=== PATIENT | male | born 2000 | race Caucasian/White ===

== ENCOUNTER 2020-10-13 00:11 | Emergency (ER) | payer SELFPAY ==
[2020-10-13 00:12] VITALS: BP 136/71; PULSE 89; RESP 18; TEMP 36.9; O2SAT 100; BMI 22.0
--- NOTE | 2020-10-13 00:14 | ED.VIS.GEN ---
History of Present Illness Chief Complaint: Substance Abuse Informant: Patient Onset: Today Context: Sudden Onset Timing: Continuous Current Severity: Moderate Maximum Severity: Severe Narrative: Patient is a 20-year-old male is otherwise healthy on no daily medications who presents to the emergency department with anxiety. Patient states that he took 2 CBD Gummies tonight. He states shortly after, he began to feel very anxious. He states he felt short of breath and was having tingling in his hands. He states he was able to breathe his way through it. He got concerned and called EMS. On arrival, the patient is awake and alert. He feels like his symptoms are improving. He does not has a history of anxiety. He is not suicidal homicidal. He denies other substance abuse. Prior similar symptoms: No Recent Illness/Hospitalization: No Past Medical History - Allergies and Home Meds Allergies/Adverse Reactions: Allergies No Known Allergies Allergy (Verified 10/13/20 00:17) Primary Care Physician: NOT,DEFINED [Primary Care Provider] - Prior records reviewed: Yes Past Medical History: None Surgical History: no surgical history Review of Systems General: Denies: Chills, Fever, Sweats Eyes: Denies: Visual changes - bilaterally, Diplopia ENT: Denies: Rhinorrhea, Sore throat Cardiovascular: Denies: Chest pain, Palpitations Respiratory: Denies: Dyspnea, Cough, Dyspnea on exertion Gastrointestinal: Denies: Abdominal pain, Nausea, Vomiting, Diarrhea, Melena, Hematochezia Genitourinary: Denies: Dysuria, Hematuria, Frequency Musculoskeletal: Denies: Back pain, Extremity Pain Skin: Denies: Rash, Wounds Neurological: Denies: Headache, Weakness, Numbness Psych: Reports: Anxiety Physical Exam Inital Vital Signs reviewed: Yes General: Well nourished, Well developed, No Acute Distress Head: Normocephalic, Atraumatic Eyes: Perrl, EOMI ENT: Moist mucous membranes, No rhinorrhea Neck: Supple, Nontender Cardiovascular: Regular rate, Regular rhythm, No murmurs Respiratory: No distress, CTA bilaterally, Chest nontender Abdomen: Soft, Nontender, Nondistended, Normal bowel sounds Back: Nontender, Normal Inspection Extremities: Nontender, No edema Skin: Normal color, No rash Neurological: Alert, Oriented x3, Cranial nerves II-XII grossly intact, Normal Strength, Normal Sensation Psychological: Normal affect, Normal Mood Diagnostic/Tx/Re-eval - Medical Decision Making The patient presents very anxious after using CBD Gummies. He does not want any medication. On arrival, he states he is already starting to feel better. Patient was kept on a monitor and observed for an hour. He has had almost total resolution of symptoms. He is not suicidal or homicidal. At this point, I do feel that he safe for outpatient follow-up. Impression 1. Anxiety secondary to CBD use ED Disposition - Plan for ED Patient: Instructions: ED Panic Attack Referrals: NOT,DEFINED [Primary Care Provider] -
[2020-10-13 01:24] VITALS: BP 128/72; PULSE 104; RESP 18; O2SAT 100
== END 2020-10-13 01:26 | disposition home or self-care (01) ==
LOC: ED 01:19
PROVIDERS: Emergency Provider Emergency Medicine
DX: F06.4 Anxiety disorder due to known physiological condition (principal)
CPT/HCPCS: 99284